=== PATIENT | female | born 1955 | race Caucasian/White ===

== ENCOUNTER 2025-02-22 07:42 | Day surgery (SDC) | payer OTHER, SELFPAY ==
[2025-02-22] VITALS (11 sets, daily range): BP systolic 125–136; BP diastolic 79–92; BMI 37.1
--- NOTE | 2025-02-22 10:16 | ITS.CL.PN ---
Inspector Wreath - Procedure Note
Procedure
Procedure Note:
CARDIAC CATHETERIZATION REPORT
Date of Procedure: 02/22/2025
Referring: Dr. Kyler Lozano MD
Indication: Anginal chest pain
PROCEDURE(S)
1. left heart catheterization
2. coronary angiography
ACCESS: 6F right radial artery (closure: radial band)
CATHETERS
1. 6F JR4
2. 6F JL4
MODERATE SEDATION: 25 minutes of moderate sedation was utilized. An independent medical illustrator was present to assist with and help manage the patient's level of consciousness and physiologic status.
HEMODYNAMIC DATA
LV 119/8 (EDP 14) mmHg
AO 126/76 (mean 97) mmHg
CORONARY ANGIOGRAPHY
Dominance: Right
LM: Large with mild luminal irregularities
LAD: Large vessel giving rise to a single medium caliber diagonal branch. There are trivial luminal irregularities.
LCx: Large vessel giving rise to a medium caliber OM1, small OM2, medium caliber OM3, small LPL1, and medium caliber LPL2. There are trivial luminal irregularities.
RCA: Large vessel giving rise to a moderate caliber RPDA, small RPL1, and multiple very small distal RPL branches. There is no coronary artery disease.
RADIATION: dose for 38 mGy; DAP 33.8 Gy*cm2; fluoroscopy time 8.5 min
CONCLUSIONS
1. Minimal coronary artery disease in a right dominant system as described
2. Mildly elevated LV filling pressure and no aortic stenosis
RECOMMENDATIONS
1. Aggressive primary prevention of coronary artery disease
2. Workup for etiology of chest pain not related to epicardial CAD
Copy to: Dr. Kyler Lozano MD (marble mechanic helper); Dr. Jason Licea MD (PCP)
Signed: Kike Santos MD, PhD
== END 2025-02-22 13:30 | disposition home or self-care (01) ==
LOC: CATH 07:42
PROVIDERS: ATTENDING PHYSICIAN Student in an Organized Health Care Education/Training Program; FAMILY PHYSICIAN Internal Medicine; OTHER PHYSICIAN Internal Medicine Cardiovascular Disease
DX: I25.119 Atherosclerotic heart disease of native coronary artery with unspecified angina pectoris (principal); Z79.899 Other long term (current) drug therapy; Z79.890 Hormone replacement therapy
CPT/HCPCS: 99152; 99153; 93458; C1894; Q9967